=== PATIENT | male | born 1935 | race Caucasian/White ===

== ENCOUNTER 2024-02-23 20:02 | Emergency (ER) | payer OTHER, MEDICARE, SELFPAY ==
[2024-02-23 20:04] VITALS: BP 120/66; PULSE 111; RESP 18; TEMP 36.5; O2SAT 100; BMI 21.1
[2024-02-23 21:01] LABS: International Normalized Ratio 2.5; Prothrombin Time (Protime)PT. 26.5 SECONDS (11.7-14.9)
--- NOTE | 2024-02-23 21:08 | EX.ED.GENINJ ---
HPI History of Present Illness Chief Complaint: Fall Informant: patient Onset/Context/Timing Onset: Today Narrative Narrative: Patient presents after a fall with facial lacerations. He is visiting from [place]. As they were arriving today patient stumbled on uneven steps and hit the right side of his face against a brick column. He has lacerations noted to the right side of his face. He is on Coumadin. He states he has not been able to get the lacerations to stop bleeding. He did not lose consciousness. He is unsure of his last tetanus update. [facility] Medical History GERD (gastroesophageal reflux disease) Hypertension Atrial fibrillation Hypercholesteremia Home Medications ?Medication ?Instructions ?Recorded ?Last Taken ?Type atorvastatin 10 mg tablet 10 mg PO QHS 02/23/24 Unknown History clopidogrel 75 mg tablet 75 mg PO DAILY 02/23/24 Unknown History digoxin 250 mcg (0.25 mg) tablet 250 mcg PO DAILY 02/23/24 Unknown History docusate calcium 240 mg capsule 240 mg PO QHS 02/23/24 Unknown History folic acid 1 mg tablet 1 mg PO DAILY 02/23/24 Unknown History glucosamine HCl 1,500 mg tablet 1,500 mg PO DAILY 02/23/24 Unknown History isosorbide mononitrate 30 mg 30 mg PO DAILY 02/23/24 Unknown History tablet,extended release 24 hr metoprolol tartrate 25 mg tablet 12.5 mg PO BID 02/23/24 Unknown History pantoprazole 40 mg tablet,delayed 40 mg PO DAILY 02/23/24 Unknown History release potassium chloride 10 mEq 20 meq PO DAILY 02/23/24 Unknown History tablet,extended release torsemide 20 mg tablet 40 mg PO DAILY 02/23/24 Unknown History vitamin E acetate 450 mg PO DAILY 02/23/24 Unknown History vitamins A,C,N-lheb-ndddwl 2,148 2 tab PO BID 02/23/24 Unknown History mcg-113 mg-45 mg-17.4 mg tablet (PreserVision AREDS) warfarin 2.5 mg tablet 1.25 - 2.5 mg PO DAILY 02/23/24 Unknown History Allergy/AdvReac Type Severity Reaction Status Date / Time No Known Allergies Allergy Verified 02/23/24 20:04 Social History Smoking Status: Never smoker ROS ROS ED Constitutional Constitutional ED: Denies chills or fever(s) Eyes Eyes: Denies discharge from eye(s) ENT ENT ED: Denies discharge from eye(s), rhinorrhea or sore throat Cardiovascular Cardiovascular: Denies chest pain or palpitations Respiratory/Chest Respiratory/Chest: Denies cough or dyspnea Gastrointestinal Gastrointestinal: Denies abdominal pain, nausea or vomiting Musculoskeletal Musculoskeletal: Denies back pain, extremity pain or neck pain Integumentary Reports Abrasions; Denies rash Neurologic Neurologic: Denies headache(s) or weakness Psychiatric Psychiatric: Denies anxiety or depression Allergic/Immunologic Allergic/Immunologic ED: Denies lip swelling or urticaria EXAM Physical Exam Const Vital Signs: 02/23/24 20:04 02/23/24 20:31 02/23/24 23:11 Temperature 97.7 F L 97.6 F L Temperature Source Temporal Pulse Rate 111 H 110 H Respiratory Rate 18 16 Blood Pressure 120/66 131/62 H Blood Pressure Mean 84 85 Pulse Ox 100 99 Oxygen Delivery Method Room Air Room Air Positive well nourished and well developed General Appearance ED: well developed HEENT HEENT Narrative: Patient has a 4 cm total length V-shaped laceration over the right parietal scalp. Patient has a 5 cm total length laceration extending from the right ear onto the right maxilla. Eyes EOMs intact bilaterally Neck full ROM Chest Wall inspection of chest normal and palpation of chest normal Resp normal respiratory effort and clear to auscultation bilaterally Cardio regular rhythm Rate: regular rate GI non-tender Palpation: soft Extremity normal to inspection Neuro oriented x3, moves all extremities, no focal motor deficits and no sensory deficits noted MDM MDM MDM Narrative Medical decision making narrative: INR will be checked. Patient sent for CT imaging of the brain and C-spine to evaluate for acute intracranial injury. Tetanus updated provided. Lab Data Labs: Laboratory Results - last 24 hr 02/23/24 20:42 PT 26.5 H INR 2.5 Radiography Diagnostic Testing: Clinical Impression(s) from Imaging Studies Brain CT 02/23/24 21:15 IMPRESSION: Age-related changes as above, without evidence of acute intracranial hemorrhage in this noncontrast head CT. Right ear soft tissue trauma. Sinus disease. Electronically Signed: Rush Causey MD at 21:59 EDT , Cervical Spine CT 02/23/24 21:15 IMPRESSION: Dense consolidation of the right apex, only partially imaged, consistent with airspace disease with or without effusion. Cervical spine without evidence of acute fracture. Neuroforaminal narrowing. Electronically Signed: Rush Causey MD at 22:12 EDT , Treatment and Re-Evaluation Narrative: CT scan of the head reveals age-related changes without evidence of hemorrhage. Right ear soft tissue trauma noted. CT the C-spine reveals dense consolidation in the right apex which is only partially imaged. No evidence of C-spine fracture. INR returned therapeutic at 2.5. The 4 cm V-shaped laceration over the right parietal/temporal area is anesthetized with 2 cc of 1% lidocaine. Wound is cleansed. 3 simple and turban sutures of 5-0 nylon are placed with good approximation. The 5 cm laceration anterior to the right ear and involving the ear is anesthetized with a total of 5 cc of 1% lidocaine. 2 sutures of 5 oh rapid Vicryl are placed along the inside surface of the ear opening with 7 simple interrupted sutures of 5-0 nylon across the maxilla. Given the patient's anticoagulation, he continues to have mild oozing. Wounds are cleansed and Surgifoam is placed. Patient's wounds are wrapped with an Sanket wrap for tonight and he will remove this tomorrow morning. Patient and are in town for the next week. He is to have sutures removed in 7 days. If he wishes to have the removed while still here, he can follow-up at urgent care or the emergency room. Discharge Plan Triage Chief Complaint: Fall ED Provider: Bree Foster Dx/Rx/DC Orders Clinical Impression: Fall, Laceration of multiple sites of face Instructions: ED Mechanical Fall, ED Laceration, All Closures Prescriptions: No Action atorvastatin 10 mg tablet 10 mg PO QHS isosorbide mononitrate 30 mg tablet extended release 24 hr 30 mg PO DAILY clopidogrel 75 mg tablet 75 mg PO DAILY digoxin 250 mcg (0.25 mg) tablet 250 mcg PO DAILY folic acid 1 mg tablet 1 mg PO DAILY pantoprazole 40 mg tablet,delayed release (DR/EC) 40 mg PO DAILY metoprolol tartrate 25 mg tablet 12.5 mg PO BID potassium chloride 10 mEq tablet extended release 20 meq PO DAILY torsemide 20 mg tablet 40 mg PO DAILY warfarin 2.5 mg tablet 1.25 - 2.5 mg PO DAILY vitamin E acetate 450 mg PO DAILY glucosamine HCl 1,500 mg tablet 1,500 mg PO DAILY Rx Instructions: administer with a meal PreserVision AREDS 2,148 mcg-113 mg-45 mg-17.4mg tablet 2 tab PO BID Rx Instructions: administer with AM and PM meals docusate calcium 240 mg capsule 240 mg PO QHS Primary Care Provider: Care Physician,No Primary Referrals: Care Physician,No Primary [Primary Care Provider] - Activity Restrictions/Additional Instructions: Have your stitches removed in 7 days. Print Language: Portuguese Disposition Disposition: Home, Self Care Discharge Date/Time: 02/23/24 23:15
--- NOTE | 2024-02-23 21:15 | CT_ITS ---
INDICATION: fall EXAMINATION: CT SPINE - CT Spine Cervical W/O Contrast Injection COMPARISON: None. A radiation dose optimization technique was used for this scan. Findings: Serial CT axial images through the cervical spine, with coronal and sagittal reformatted series. BONES: No evidence of cervical spine fracture or subluxation. No concerning bony lesion or abnormal sclerosis to suggest lesion. DISCS/JOINTS: Moderate to severe multilevel bilateral neuroforaminal narrowing. SOFT TISSUES: Dense consolidation of the right apex, only partially imaged. CT/Spine Cervical without Contras IMPRESSION: Dense consolidation of the right apex, only partially imaged, consistent with airspace disease with or without effusion. Cervical spine without evidence of acute fracture. Neuroforaminal narrowing. Electronically Signed: Rush Causey MD at 22:12 EDT ,
--- NOTE | 2024-02-23 21:15 | CT_ITS ---
INDICATION: trauma EXAMINATION: CT BRAIN - CT Head or Brain W/O Contrast Injection TECHNIQUE: Serial CT axial images were obtained of the head without intravenous contrast. A radiation dose optimization technique was used for this scan. COMPARISON: None. Findings: Serial CT axial images of the head without contrast. BRAIN PARENCHYMA: Diffuse periventricular hypoattenuation likely chronic white matter ischemic changes. Significant diffuse volume loss. No evidence of intraparenchymal hemorrhage or hyperattenuating extra-axial fluid collection. VASCULAR STRUCTURES: Atherosclerotic vascular calcifications. BONES: Bilateral maxillary sinus and ethmoid sinus mucosal thickening. SCALP/REMAINING SOFT TISSUES: Soft tissue swelling of the right ear with overlying bandage material. ASPECTS Score for Acute Strokes, if applicable: 10 CT/Brain/Head without Contrast IMPRESSION: Age-related changes as above, without evidence of acute intracranial hemorrhage in this noncontrast head CT. Right ear soft tissue trauma. Sinus disease. Electronically Signed: Rush Causey MD at 21:59 EDT ,
[2024-02-23] MEDS: Diphth,Pertuss(Acell),Tet Vac 0.5 ML Vial IM (21:44)
[2024-02-23] MEDS: Lidocaine 1% (20 ml mdv) 20 ML Vial INFILT (21:45)
[2024-02-23 23:11] VITALS: BP 131/62; PULSE 110; RESP 16; TEMP 36.4; O2SAT 99
== END 2024-02-23 23:15 | disposition home or self-care (01) ==
PROVIDERS: Emergency Provider Emergency Medicine; Visit Provider Emergency Medicine
DX: S01.81XA Laceration without foreign body of other part of head, initial encounter (principal); Z79.01 Long term (current) use of anticoagulants; I10 Essential (primary) hypertension; E78.00 Pure hypercholesterolemia, unspecified; W10.9XXA Fall (on) (from) unspecified stairs and steps, initial encounter; K21.9 Gastro-esophageal reflux disease without esophagitis; Z79.899 Other long term (current) drug therapy; Z23 Encounter for immunization; S01.01XA Laceration without foreign body of scalp, initial encounter; S01.311A Laceration without foreign body of right ear, initial encounter
CPT/HCPCS: 12015; 70450; 72125; 85610; 90471; 90715; 99283